=== PATIENT | female | born 1970 | race Caucasian/White ===

== ENCOUNTER 2017-09-16 21:18 | Inpatient (IN) | payer MEDICARE, MEDICAID ==
[2017-09-16] MEDS ORDERED: Ondansetron HCl/PF 4 MG/2 ML Vial ONE (21:52)
[2017-09-16] MEDS ORDERED: Ondansetron ODT 4 MG TAB ONE (22:26)
[2017-09-16 22:41] LABS: BUN (Urea Nitrogen) 64 mg/dL (7.0-18.7); Calc. Creatinine Clearance 0 mL/min (70-130); Calcium 10.1 mg/dL (7.8-10.44); Estimated GFR-MDRD 11
[2017-09-16 22:50] LABS: Magnesium 2.4 mg/dL (1.6-2.6); Phosphorus 5.6 mg/dL (2.3-4.7)
[2017-09-16 23:01] LABS: Anion Gap 24 mmol/L (10-20)
[2017-09-16 23:05] LABS: Carbon Dioxide 45 mmol/L (22-29); Chloride 70 mmol/L (98-107)
[2017-09-16] MEDS ORDERED: Ondansetron HCl/PF 4 MG/2 ML Vial IVP PRN ×2 (23:11→23:18)
[2017-09-16] MEDS ORDERED: Ondansetron ODT 4 MG TAB SL PRN (23:11)
[2017-09-16] MEDS ORDERED: Eucerin (Mineral Oil/Petrolatum,White) 30 gm Jar TOP PRN (23:18)
[2017-09-16] MEDS ORDERED: Zolpidem Tartrate 5 MG TAB PO PRN (23:18)
[2017-09-16] MEDS ORDERED: Milk Of Magnesia 30 ML UDCUP PO PRN (23:18)
[2017-09-16] MEDS ORDERED: Loratadine 10 MG TAB PO PRN (23:18)
[2017-09-16] MEDS ORDERED: Diabetic Tussin 200 MG/10 ML UDCUP PO PRN (23:18)
[2017-09-16] MEDS ORDERED: Sodium Chloride 0.65% Nasal 44 ML BOT EA NARE PRN (23:18)
[2017-09-16] MEDS ORDERED: Ondansetron ODT 4 MG TAB PO PRN (23:18)
[2017-09-16] MEDS ORDERED: Senokot 8.6 MG TAB PO PRN (23:18)
[2017-09-16] MEDS ORDERED: Chloraseptic Spray 180 ml Bottle PO PRN (23:18)
[2017-09-16] MEDS ORDERED: Artificial Tears 18 DROP/0.9 ML EA EYE PRN (23:18)
[2017-09-16] MEDS ORDERED: hydrALAZINE 20 MG/ML VIAL SLOW IVP PRN (23:18)
[2017-09-16] MEDS ORDERED: Acetaminophen 325 MG TAB PO PRN (23:18)
[2017-09-16] MEDS ORDERED: Loperamide HCl 2 MG CAP PO PRN (23:18)
[2017-09-16] MEDS ORDERED: Potassium Chloride 20 MEQ TAB PO SCH (23:30)
--- NOTE | 2017-09-16 23:37 | PDOC.EVN ---
Event Note - Event Note Event Note: Patient seen and examined. dictation note to follow
[2017-09-17] MEDS ORDERED: Lorazepam 1 MG TAB PO PRN (00:11)
[2017-09-17] MEDS: NS 0.9% w/ 20 MEQ KCL 1,000 ML/1,000 ML BAG IV SCH ×3 (01:34→21:31)
--- NOTE | 2017-09-17 01:41 | HP ---
DATE OF ADMISSION: 09/16/2017 PRIMARY CARE PHYSICIAN: Dr. Baig in [place], [place]. REASON FOR ADMISSION: Transfer from [facility] for acute kidney failure. HISTORY OF PRESENT ILLNESS: A 46-year-old female who has history of alcoholic cirrhosis as well as a history of hepatitis B, who initially went to [facility] because patient reported to reymundo corona that she passed out at home and subsequently she was taken to the nearest emergency room where she had routine blood test done and patient was found with acute kidney failure. As per our hospital rec ord, her most recent creatinine was 1.84 on 08/12/2017. This patient has history of end-stage renal disease and she was on peritoneal dialysis, subsequently peritoneal dialysis catheter was removed and she was doing well without any dialysis and she was following Dr. Gomez. The patient reports that for the last week or two, she was having diarrhea. She is not able to quantify diarrhea, but she wa s having on and off loose stool. She denies any nausea, vomiting. She denies any ibuprofen or any o ther NSAID abuse. At [facility], the patient was given IV fluid, Zofran and potassium supplement with IV fluid and subsequently, she was transferred to our hospital. At [facility], the patien t was hypotensive, but with IV fluid, her blood pressure improved. When we repeated blood tests in our hospital, she was having hypokalemia and creatinine was 4.42; at [facility], her creatinine was 5.03. We are admitting this patient for acute kidney fa ilure. ALLERGIES: CEPHALOSPORINS, CIPROFLOXACIN. CURRENT HOME MEDICATIONS: At this point, patient does not have any medication with her at this point , but based on our hospital record, the patient is on following medications: [place] 5 one or two tabl et q. 6 hourly p.r.n., lorazepam 0.5 mg p.o. b.i.d. p.r.n., Antivert 25 mg p.o. daily p.r.n., midodri ne 5 mg t.i.d., omeprazole 40 mg p.o. daily. REVIEW OF SYSTEMS: The following complete review of systems was negative, unless otherwise mentioned in the HPI or below: Constitutional: Weight loss or gain, ability to conduct usual activities. Skin: Rash, itching. Eyes: Double vision, pain. ENT/Mouth: Nose bleeding, neck stiffness, pain, tenderness. Cardiovascular: Palpitations, dyspnea on exertion, orthopnea. Respiratory: Shortness of breath, wheezing, cough, hemoptysis, fever or night sweats. Gastrointestinal: Poor appetite, abdominal pain, heartburn, nausea, vomiting, constipation, or diarr hea. Genitourinary: Urgency, frequency, dysuria, nocturia. Musculoskeletal: Pain, swelling. Neurologic/Psychiatric: Anxiety, depression. Allergy/Immunologic: Skin rash, bleeding tendency. Otherwise negative except as stated per HPI. Please see my HPI for pertinent positive and negative. All other review of systems reviewed and nega tive except as mentioned in the HPI. PAST MEDICAL HISTORY: Alcoholic cirrhosis of liver; history of hepatitis B; history of end-stage lorenzo al disease, required peritoneal dialysis for 2 years in the past; history of peritonitis secondary to peritoneal dialysis catheter; chronic kidney disease, stage 3; hemochromatosis carrier; chronic macr ocytic anemia; alcohol abuse; tobacco abuse; protein calorie malnutrition, moderate; vitamin D defici ency. PAST SURGICAL HISTORY: Cholecystectomy, peritoneal dialysis catheter placement and subsequently hiwot shubham, incisional hernia repair, appendicectomy, femur surgery, right hand surgery. PAST PSYCHIATRIC HISTORY: Anxiety and depression, bipolar disorder. SOCIAL HISTORY: The patient is smoking about 1 pack per day for the last 26 years. She also drinks half bottle of alcohol on a daily basis. She is . She has 2 children. She is not working, lives alone. She has a remote history of drug abuse. She abused cocaine. FAMILY HISTORY: No strong family history of premature coronary artery disease, stroke or cancer. EMERGENCY ROOM COURSE: The patient has been given IV fluid with potassium with Zofran at other [facility] room. The patient has received another Zofran and IV fluid in our emergency room. PHYSICAL EXAMINATION: VITAL SIGNS: Currently, blood pressure 141/93, pulse 72, respiratory rate 18, temperature 97.8, satu ration 100% on room air, and weight 38.5 kilograms. GENERAL: The patient is currently alert, awake, appears older than her stated age. HEAD: Normocephalic, atraumatic. EYES: Pupils round, reactive to light. Extraocular muscles intact. ENT: Oropharynx within normal limit. Pale mucous membranes. No pharyngeal erythema, no exudate. NECK: Supple, no JVD, no thyromegaly, no meningeal signs of irritation. LUNGS: Clear to auscultation without any rhonchi or rales. CARDIAC: S1, S2 regular. No murmur, no gallop, no rub. ABDOMEN: Soft, bowel sounds present. Surgical scar from previous peritoneal dialysis catheter. No ascites, no peritoneal sign, no guarding, no rigidity, no rebound, no suprapubic tenderness. BACK: Unremarkable, no CVA tenderness. EXTREMITIES: Upper extremities: Passive movement of all joints are normal. Lower extremities: No edema. Good peripheral pulsation. SKIN: Dry and pale. NEUROLOGIC: The patient has poor memory. Cranial nerves II-XII intact. Motor and sensation within normal limits. No focal neurological deficit noted. PSYCHIATRIC: Normal affect. SIGNIFICANT LABORATORY DATA: CBC: WBC 7.4, hemoglobin 11.7, MCV 110.2, platelets 346. BMP: Sodium 130, potassium 2.2, chloride 54, BUN 68, creatinine 5.03, calcium 10.5, glucose 82, albumin 3.3, AST 44, ALT 22, alkaline phosphatase 235, protein 7.7, osmolality 279, bilirubin 0.76, anion gap 32.2. Urinalysis: Leukocyte esterase 2+. ASSESSMENT AND PLAN/IMPRESSION: 1. Acute on chronic kidney failure. The patient has baseline chronic kidney disease, stage 3. This patient has previous history of end-stage renal disease on peritoneal dialysis for few years and the n peritoneal dialysis catheter was discontinued. At one point, her creatinine was normal 1.04. Most recent creatinine was 1.84 and now 5.03. Most likely prerenal etiology, the patient will be given I V fluid. We will consult Nephrology. We will check urine sodium, creatinine, protein, and urinalysi s. We will avoid nephrotoxins and we will obtain renal ultrasound. We will repeat kidney function t omorrow. 2. Hypokalemia. We will replace potassium 40 mEq p.o. one time dose and we will also continue potas sium with IV fluid. 3. Hyponatremia likely due to dehydration. We will continue with IV fluid and we will repeat BMP ag ain tomorrow. This could be from beer potomania given her significant alcohol abuse. 4. Microcytic anemia, likely related with her alcohol abuse. We will continue with multivitamin IV daily and subsequently, we will consider adding folic acid, thiamine, vitamin B12 therapy. 5. Alcohol abuse, patient is given counseling to avoid alcohol abuse. We will provide Ativan 1 mg p .o. q. 4 hourly p.r.n. basis for withdrawal. We will watch for alcohol withdrawal. The patient is a lready on multivitamin therapy. 6. Tobacco abuse disorder. We will provide nicotine patch 14 mcg every day basis. Smoking cessatio n counseling given. 7. Protein calorie malnutrition, moderate. The patient is given dietary instruction. We will provi de Ensure t.i.d. while in hospital. 8. Vitamin D deficiency. We will continue vitamin D3 of 1000 units p.o. daily. 9. Hyperphosphatemia, likely related with renal failure. We will monitor renal function. We will a dd PhosLo 667 mg 2 tablets three times daily. 10. Anion gap acidosis, likely related with alcohol use and renal failure. We will also obtain ABG for better defining acid base disorder. 11. Deep venous thrombosis prophylaxis, heparin 5000 units subcu twice daily. 12. Gastrointestinal prophylaxis, Protonix 40 mg p.o. daily. CODE STATUS: The patient is FULL CODE. The patient does not have any surrogate decision maker. Disposition plan based on clinical course. We are expecting patient's stay in the hospital more than 2 midnights. Plan of care discussed with the patient in detail.
[2017-09-17 02:01] VITALS: BMI 14.6
[2017-09-17 02:32] LABS: Bacteria/HPF None Seen HPF (None Seen); Bilirubin Negative (Negative); Blood, Urine Negative (Negative); Glucose, Urine (Dipstick) Negative (Negative); Hyaline Casts/LPF 0-3 HYALINE CAST LPF (0-3 Hyaline); Ketone, Urine Negative (Negative); Nitrite Negative (Negative); Protein, Urine (Dipstick) Negative (Neg-Trace); RBC/HPF None Seen HPF (0-3); Squamous Epithelial 0-3 HPF (0-3); Urobilinogen 0.2 mg/dL (0.2-1.0); WBC/HPF 0-3 HPF (0-3)
[2017-09-17 05:42] LABS: PTT 28.8 SEC (22.9-36.1); Prothrombin Time 13.9 SEC (12.0-14.7)
[2017-09-17 05:43] LABS: ALT (SGPT) 16 U/L (8-55); AST (SGOT) 36 U/L (5-34); Alkaline Phosphatase 211 U/L (40-150); BUN (Urea Nitrogen) 64 mg/dL (7.0-18.7); Bilirubin, Total 0.6 mg/dL (0.2-1.2); Calc. Creatinine Clearance 10 mL/min (70-130); Calcium 9.6 mg/dL (7.8-10.44); Estimated GFR-MDRD 11; Globulin 3.5 g/dL (2.4-3.5); Protein, Total 6.1 g/dL (6.0-8.3)
[2017-09-17 05:52] LABS: Anion Gap 19 mmol/L (10-20); Chloride 75 mmol/L (98-107)
[2017-09-17 05:56] LABS: Carbon Dioxide 47 mmol/L (22-29)
[2017-09-17] MEDS ORDERED: Potassium Chloride 20 MEQ TAB PO SCH (06:00)
[2017-09-17] MEDS: Nicotine 14 MG PATCH TD SCH (06:20)
[2017-09-17 06:23] LABS: #Basophils 0.1 thou/uL (0.0-0.2); #Eosinphils 0.1 thou/uL (0.0-0.7); #Lymphocytes 1.6 thou/uL (1.20-3.40); #Monocytes 0.7 thou/uL (0.11-0.59); #Neutrophils 4.9 thou/uL (1.40-6.50); %Basophils 0.8 % (0.0-1.0); %Eosinophils 1.3 % (0.0-10.0); %Lymphocytes 21.4 % (21.0-51.0); %Monocytes 9.9 % (0.0-10.0); Hematocrit 28.7 % (36.0-47.0); Macrocytosis SLIGHT = 6-15 cells (100X) (0-5/hpf); Polychromasia SLIGHT = 2-3 cells (100X) (0-2/hpf); Red Blood Cell (RBC) Count 2.47 mill/uL (4.20-5.40); White Blood Cell (WBC) Count 7.4 thou/uL (4.8-10.8)
[2017-09-17 06:46] LABS: Sodium 134 mmol/L (135-148)
[2017-09-17 06:48] LABS: Mode ROOM AIR
--- NOTE | 2017-09-17 07:44 | ULT ---
RENAL ULTRASOUND: HISTORY: Acute renal insufficiency. FINDINGS: Real-time imaging of the right and left kidneys was performed. The right mp9wdyy measures 7.8 and th e left kidney 8.4 cm in size. There are no signs of obstruction. A tiny 4 mm cyst is noted on the r ight and an 8 mm cyst on the left. Bladder region appears unremarkable. IMPRESSION: Tiny bilateral renal cysts. POS: CY
--- NOTE | 2017-09-17 08:19 | PDOC.PN ---
- Subjective Encounter Start Date: 09/17/17 Encounter Start Time: 08:17 Subjective: alert, no complaints - Objective Resuscitation Status: Resuscitation Status FULL:Full Resuscitation MAR Reviewed: Yes Vital Signs & Weight: Vital Signs (12 hours) Temp Pulse Resp BP Pulse Ox 09/17/17 04:00 97.0 F L 72 20 104/70 98 09/16/17 23:50 97.9 F 73 18 100 09/16/17 23:30 97.9 F 73 18 110/78 97 Weight Weight 82 lb 11.2 oz I&O: 09/16/17 09/17/17 09/18/17 06:59 06:59 06:59 Output Total 350 Balance -350 Result Diagrams: 09/17/17 05:04 09/17/17 05:04 Phys Exam - Physical Examination Constitutional: NAD Neck: no JVD Respiratory: clear to auscultation bilateral Cardiovascular: RRR, no significant murmur Gastrointestinal: soft, non-tender, positive bowel sounds Musculoskeletal: pulses present, edema present Dx/Plan (1) KAMALJIT (acute kidney injury) Code(s): N17.9 - ACUTE KIDNEY FAILURE, UNSPECIFIED Status: Acute (2) CKD (chronic kidney disease) Code(s): N18.9 - CHRONIC KIDNEY DISEASE, UNSPECIFIED Status: Acute Qualifiers: Chronic kidney disease stage: stage 3 (moderate) Qualified Code(s): N18.3 - Chronic kidney disease, stage 3 (moderate) (3) Cirrhosis of liver Code(s): K74.60 - UNSPECIFIED CIRRHOSIS OF LIVER Status: Acute Qualifiers: Hepatic cirrhosis type: alcoholic cirrhosis (4) Alcohol abuse Code(s): F10.10 - ALCOHOL ABUSE, UNCOMPLICATED Status: Chronic (5) Tobacco abuse Code(s): Z72.0 - TOBACCO USE Status: Chronic - Plan stable at present, await renal input -: toxicology PEREZ * .
[2017-09-17] MEDS: Cyanocobalamin (Vitamin B-12) 1,000 MCG TAB PO SCH (09:26)
[2017-09-17] MEDS: Calcium Acetate 667 MG CAP PO SCH ×3 (09:26→17:27)
[2017-09-17] MEDS: Folic Acid 1 MG TAB PO SCH (09:26)
[2017-09-17] MEDS: Heparin 5,000 UNITS/ML VIAL SC SCH ×2 (09:28→21:30)
[2017-09-17] MEDS: Mag-Al 1200 mg/1200 mg/30 ML UDCUP PO PRN (12:08)
[2017-09-17 12:44] LABS: Amphetamine Not Detected (NotDetected); Methadone Not Detected (NotDetected); Methamphetamine Not Detected (NotDetected)
[2017-09-17] MEDS: HYDROcodone/Acetaminophen 5/325 mg Tablet PO PRN (13:32)
--- NOTE | 2017-09-17 23:36 | CON ---
DATE OF CONSULTATION: 09/17/2017 NEPHROLOGY CONSULTATION CONSULTING PHYSICIAN: Dr. Vang. REASON FOR CONSULTATION: Acute kidney injury. REASON FOR ADMISSION: Not feeling well. HISTORY OF PRESENT ILLNESS: This is a 46-year-old female with a history of alcoholic cirrhosis, hepa titis, history of peritonitis, hemochromatosis and alcohol abuse, came to the hospital with weakness and was found to have acute kidney injury. She was complaining of diarrhea for the last few weeks. No fever or chills, no cough, no chest pain or palpitation, no shortness of breath reported. PAST MEDICAL HISTORY: Positive for alcoholic cirrhosis, alcohol abuse, chronic anemia, history of di alysis for few years. PAST SURGICAL HISTORY: Cholecystectomy, peritoneal dialysis catheter placement, incisional hernia re pair, appendectomy, femur surgery, right hand surgery. HOME MEDICATIONS: [place], lorazepam, Antivert, midodrine, omeprazole. ALLERGIES: CEPHALOSPORINS, CIPROFLOXACIN. SOCIAL HISTORY: No smoking, alcohol or illicit drug abuse. FAMILY HISTORY: No history of any kidney disease . REVIEW OF SYSTEMS: The following complete review of systems was negative, unless otherwise mentioned in the HPI or below: Constitutional: Weight loss or gain, ability to conduct usual activities. Skin: Rash, itching. Eyes: Double vision, pain. ENT/Mouth: Nose bleeding, neck stiffness, pain, tenderness. Cardiovascular: Palpitations, dyspnea on exertion, orthopnea. Respiratory: Shortness of breath, wheezing, cough, hemoptysis, fever or night sweats. Gastrointestinal: Poor appetite, abdominal pain, heartburn, nausea, vomiting, constipation, or diarr hea. Genitourinary: Urgency, frequency, dysuria, nocturia. Musculoskeletal: Pain, swelling. Neurologic/Psychiatric: Anxiety, depression. Allergy/Immunologic: Skin rash, bleeding tendency. PHYSICAL EXAMINATION: GENERAL: This is a thin-built female in no apparent distress. VITAL SIGNS: Temperature 97.1, pulse 68, respiratory rate 18, blood pressure . HEENT: Atraumatic, normocephalic. Oral mucosa is dry. NECK: Supple, no masses. CARDIOVASCULAR: S1, S2. Rate and rhythm regular. RESPIRATORY: Clear. ABDOMEN: Soft. MUSCULOSKELETAL: 1+ edema. DERMATOLOGIC: No skin rash. NEUROLOGIC: Alert and awake. PSYCHIATRIC: Mood and affect normal. LABORATORY DATA: Hemoglobin is 9.7, potassium is 3.2, bicarbonate is 47, BUN is 64, creatinine was 4 .1. ASSESSMENT AND PLAN: 1. Acute kidney injury secondary to volume depletion. Continue hydration. 2. Metabolic alkalosis, compensated. 3. Hypokalemia secondary to alkalosis and diarrhea. 4. Hypochloremia. 5. Anemia, mild. Plan is to continue IV fluids. Avoid nephrotoxins. No acute indication for dialysis. Thank you for the consultation.
[2017-09-18] MEDS: Nicotine 14 MG PATCH TD SCH (06:44)
[2017-09-18] MEDS: NS 0.9% w/ 20 MEQ KCL 1,000 ML/1,000 ML BAG IV SCH (07:00)
--- NOTE | 2017-09-18 07:38 | PDOC.PN ---
- Subjective Encounter Start Date: 09/18/17 Encounter Start Time: 07:34 Ms. Leyva was seen today in follow-up of acute renal failure. She says she is feeling weak, but better. - Objective Resuscitation Status: Resuscitation Status FULL:Full Resuscitation MAR Reviewed: Yes Vital Signs & Weight: Vital Signs (12 hours) Temp Pulse Resp BP BP Pulse Ox 09/18/17 04:00 98.3 F 65 18 123/80 94 L 09/18/17 00:00 98.5 F 77 18 99/63 93 L 09/17/17 20:00 98.4 F 60 18 115/73 93 L Weight Admit Weight 82 lb 11.2 oz Weight 82 lb 11.2 oz I&O: 09/17/17 09/18/17 09/19/17 06:59 06:59 06:59 Intake Total 3460 2060 Output Total 350 Balance -350 3460 0 Result Diagrams: 09/17/17 05:04 09/17/17 05:04 Phys Exam - Physical Examination HEENT: PERRLA Respiratory: no wheezing, no rales, no rhonchi, clear to auscultation bilateral Cardiovascular: RRR, no significant murmur Gastrointestinal: soft, non-tender, positive bowel sounds Musculoskeletal: no edema Dx/Plan (1) Acute on chronic kidney failure Code(s): N17.9 - ACUTE KIDNEY FAILURE, UNSPECIFIED; N18.9 - CHRONIC KIDNEY DISEASE, UNSPECIFIED Status: Acute (2) Metabolic alkalosis Code(s): E87.3 - ALKALOSIS Status: Acute (3) Cirrhosis of liver Code(s): K74.60 - UNSPECIFIED CIRRHOSIS OF LIVER Status: Acute Qualifiers: Hepatic cirrhosis type: alcoholic cirrhosis (4) Alcohol abuse Code(s): F10.10 - ALCOHOL ABUSE, UNCOMPLICATED Status: Chronic - Plan * Acute on chronic kidney disease- due to volume depletion- Continue IV hydration * Hypokalemia- from metabolic alkalosis- continue hydration and replace potassium. * Cirrhosis- compensated * Alcohol abuse- will continue brief counseling throughout hospital stay * Renal ultrasound- no obstruction * Continue to monitor renal function- Nephrology following
[2017-09-18] MEDS ORDERED: Potassium Chloride 20 MEQ TAB PO SCH (08:00)
[2017-09-18] MEDS: Folic Acid 1 MG TAB PO SCH (08:00)
[2017-09-18] MEDS: Cyanocobalamin (Vitamin B-12) 1,000 MCG TAB PO SCH (08:00)
[2017-09-18] MEDS: Heparin 5,000 UNITS/ML VIAL SC SCH ×2 (08:01→20:22)
[2017-09-18] MEDS: Calcium Acetate 667 MG CAP PO SCH ×3 (08:01→17:34)
[2017-09-18] MEDS: HYDROcodone/Acetaminophen 5/325 mg Tablet PO PRN (10:39)
[2017-09-18] MEDS: Mag-Al 1200 mg/1200 mg/30 ML UDCUP PO PRN (11:29)
[2017-09-18 12:01] LABS: Anion Gap 14 mmol/L (10-20); BUN (Urea Nitrogen) 44 mg/dL (7.0-18.7); Calc. Creatinine Clearance 16 mL/min (70-130); Calcium 9.6 mg/dL (7.8-10.44); Carbon Dioxide 32 mmol/L (22-29); Chloride 97 mmol/L (98-107); Estimated GFR-MDRD 20
--- NOTE | 2017-09-18 12:31 | PRG ---
Patient Name: PHILIP JEFFERSON Date of service: 09/18/2017 Subjective: Patient was seen and examined at bedside and overnight events noted. Patient denies any shortness of breath or chest pain or palpitation. No history of nausea or vomiting or diarrhea or fever or chills or cramps. Objective: General: This is a thin-built female in no apparent distress. Vital signs: Temperature 97, pulse 61, respiratory rate 18, blood pressure 128/ 84. HEENT: Atraumatic, normocephalic. Oral mucosa is moist. Neck: Supple. Cardiovascular: S1 S2 heard. Rate and rhythm regular. Respiratory: Clear to auscultation. Gastrointestinal: Abdomen is soft. Musculoskeletal: No tenderness. No edema. Dermatologic: No skin rash. Neurologic: Alert and awake and oriented X3. No focal neurologic deficits. Moving all the extremities. Psychiatric: Mood and affect normal. LABORATORY DATA: Potassium is 5.5, BUN 44, creatinine is 2.5. ASSESSMENT AND PLAN: 1. Acute kidney injury, getting better with IV hydration. 2. Hyperkalemia. We will stop potassium supplements. 3. Metabolic alkalosis, much better with IV hydration. 4. Hyperkalemia. 5. Anemia. Continue on hydration. Bicarbonate creatinine is getting better. Stop potassium supplements. MTDD
[2017-09-18] MEDS: Sodium Chloride 0.9% 1,000 ML IV SCH ×2 (13:29→22:37)
[2017-09-19] MEDS: Nicotine 14 MG PATCH TD SCH (03:18)
[2017-09-19 04:50] LABS: Anion Gap 10 mmol/L (10-20); BUN (Urea Nitrogen) 35 mg/dL (7.0-18.7); Calc. Creatinine Clearance 19 mL/min (70-130); Calcium 9.1 mg/dL (7.8-10.44); Carbon Dioxide 31 mmol/L (22-29); Chloride 103 mmol/L (98-107); Estimated GFR-MDRD 25
[2017-09-19] MEDS: Sodium Chloride 0.9% 1,000 ML IV SCH ×2 (08:18→18:30)
[2017-09-19] MEDS: Calcium Acetate 667 MG CAP PO SCH ×3 (08:20→16:25)
[2017-09-19] MEDS: Cyanocobalamin (Vitamin B-12) 1,000 MCG TAB PO SCH (09:36)
[2017-09-19] MEDS: Folic Acid 1 MG TAB PO SCH (09:36)
[2017-09-19] MEDS: Heparin 5,000 UNITS/ML VIAL SC SCH ×2 (09:37→19:50)
--- NOTE | 2017-09-19 09:48 | PDOC.PN ---
- Subjective Encounter Start Date: 09/19/17 Encounter Start Time: 09:45 is being seen with regards to acute renal failure and dehydration. She says she feels much better today, and has no complaints. - Objective Resuscitation Status: Resuscitation Status FULL:Full Resuscitation MAR Reviewed: Yes Vital Signs & Weight: Vital Signs (12 hours) Temp Pulse Resp BP Pulse Ox 09/19/17 08:00 98.2 F 55 L 18 143/86 H 100 Weight Admit Weight 82 lb 11.2 oz Weight 82 lb 11.2 oz I&O: 09/18/17 09/19/17 09/20/17 06:59 06:59 06:59 Intake Total 3460 5990 Balance 3460 5990 Result Diagrams: 09/17/17 05:04 09/19/17 04:06 Phys Exam - Physical Examination HEENT: PERRLA Respiratory: no wheezing, no rales, no rhonchi, clear to auscultation bilateral Cardiovascular: RRR, no significant murmur Gastrointestinal: soft, non-tender, positive bowel sounds Musculoskeletal: no edema Dx/Plan (1) Acute on chronic kidney failure Code(s): N17.9 - ACUTE KIDNEY FAILURE, UNSPECIFIED; N18.9 - CHRONIC KIDNEY DISEASE, UNSPECIFIED Status: Acute (2) Metabolic alkalosis Code(s): E87.3 - ALKALOSIS Status: Acute (3) Cirrhosis of liver Code(s): K74.60 - UNSPECIFIED CIRRHOSIS OF LIVER Status: Acute Qualifiers: Hepatic cirrhosis type: alcoholic cirrhosis (4) Alcohol abuse Code(s): F10.10 - ALCOHOL ABUSE, UNCOMPLICATED Status: Chronic - Plan * Acute renal failure- improving * Metabolic alkalosis- improving with hydration * Hyperkalemia- this has been corrected, after potassium supplementation was stopped * If renal function continues to improve, then likely home soon.
--- NOTE | 2017-09-19 13:21 | PRG ---
DATE OF SERVICE: 09/19/2017 SUBJECTIVE: Patient was seen and examined at bedside and overnight events noted. Patient denies any shortness of breath or chest pain or palpitation. No history of nausea or vomiting or diarrhea or fever or chills or cramps. OBJECTIVE: GENERAL: This is a thin built female in no apparent distress. VITAL SIGNS: Temperature 98.2, pulse 55, respirations 18, blood pressure 143/86. HEENT: Atraumatic, normocephalic. Oral mucosa is moist. NECK: Supple. CARDIOVASCULAR: S1, S2 heard. Rate and rhythm regular. RESPIRATORY: Clear to auscultation. GASTROINTESTINAL: Abdomen is soft. MUSCULOSKELETAL: No tenderness, no edema. DERMATOLOGIC: No skin rash. NEUROLOGIC: Alert and awake and oriented x3. No focal neurologic deficits. Moving all the extremit ies. PSYCHIATRIC: Mood and affect normal LABORATORY DATA: Potassium is 4.3, BUN is 35, and creatinine is 2.1. ASSESSMENT AND PLAN: 1. Acute kidney injury on chronic kidney disease. Renal function is slowly getting better. Continu e hydration for 1 more day. 2. Hyperkalemia, better after stopping potassium supplements. 3. Metabolic alkalosis, better. 4. Anemia. 5. Edema, controlled. Plan is to continue on intravenous fluids for 1 more day.
[2017-09-19] MEDS: HYDROcodone/Acetaminophen 5/325 mg Tablet PO PRN (16:20)
[2017-09-20] MEDS: HYDROcodone/Acetaminophen 5/325 mg Tablet PO PRN ×2 (00:14→10:04)
[2017-09-20 04:45] LABS: Anion Gap 11 mmol/L (10-20); BUN (Urea Nitrogen) 24 mg/dL (7.0-18.7); Calc. Creatinine Clearance 25 mL/min (70-130); Calcium 8.8 mg/dL (7.8-10.44); Carbon Dioxide 22 mmol/L (22-29); Chloride 110 mmol/L (98-107); Estimated GFR-MDRD 33
[2017-09-20] MEDS: Sodium Chloride 0.9% 1,000 ML IV SCH (06:13)
[2017-09-20] MEDS: Nicotine 14 MG PATCH TD SCH (06:13)
[2017-09-20] MEDS: Cyanocobalamin (Vitamin B-12) 1,000 MCG TAB PO SCH (08:06)
[2017-09-20] MEDS: Calcium Acetate 667 MG CAP PO SCH ×2 (08:06→11:32)
[2017-09-20] MEDS: Folic Acid 1 MG TAB PO SCH (08:06)
[2017-09-20] MEDS: Heparin 5,000 UNITS/ML VIAL SC SCH (08:07)
--- NOTE | 2017-09-20 09:08 | PRG ---
DATE OF SERVICE: 09/20/2017 SUBJECTIVE: This is a 46-year-old female being seen for acute kidney injury. The patient denies any nausea, vomiting or chest pain. PHYSICAL EXAMINATION: GENERAL: Patient is awake, alert. VITAL SIGNS: Afebrile, pulse 74, breathing at 16, blood pressure 116/70. GENERAL APPEARANCE AND MENTAL STATUS: Fair. HEAD/NECK: Normocephalic. Atraumatic. EYES: EOMI. No deformity. EARS: Clear. No ulcers. NOSE: Intact. No lesions. MOUTH: Clear. No discharge. THROAT: Clear. No exudate. LUNGS: Clear. No crackles. CARDIAC: S1, S2. No rub. ABDOMEN: Benign. BS+. GENITALIA/RECTUM: Hoffman absent. BACK/EXTREMITIES: Edema 0+ Ulcer- NEUROLOGICAL: Alert and motor intact. SKIN: Rash- Bruise- LYMPHATICS: Edema- Ulcer- LABORATORY DATA: Show hemoglobin 9.7, creatinine 1.6. ASSESSMENT AND PLAN: 1. Acute kidney injury, improved. 2. Hypotension, stable. 3. Anemia, stable. 4. Medications based on glomerular filtration rate are appropriate. No indication for dialysis. MTDD
--- NOTE | 2017-09-20 09:39 | PDOC.PN ---
- Subjective Encounter Start Date: 09/20/17 Encounter Start Time: 09:37 Ms. Leyva was seen today in follow-up of acute renal failure. She is feeling much better today, and wants to go home. - Objective Resuscitation Status: Resuscitation Status FULL:Full Resuscitation MAR Reviewed: Yes Vital Signs & Weight: Vital Signs (12 hours) Temp Pulse Resp BP Pulse Ox 09/20/17 08:51 99.3 F 52 L 18 135/76 100 09/20/17 08:00 98.5 F 74 18 09/20/17 04:00 98.5 F 74 18 116/70 98 Weight Admit Weight 82 lb 11.2 oz Weight 82 lb 11.2 oz I&O: 09/19/17 09/20/17 09/21/17 06:59 06:59 06:59 Intake Total 5990 4760 Balance 5990 4760 Result Diagrams: 09/17/17 05:04 09/20/17 03:41 Phys Exam - Physical Examination HEENT: PERRLA Respiratory: no wheezing, no rales, no rhonchi Cardiovascular: RRR, no significant murmur, no rub Gastrointestinal: soft, non-tender, positive bowel sounds Musculoskeletal: no edema Dx/Plan (1) Acute on chronic kidney failure Code(s): N17.9 - ACUTE KIDNEY FAILURE, UNSPECIFIED; N18.9 - CHRONIC KIDNEY DISEASE, UNSPECIFIED Status: Acute (2) Metabolic alkalosis Code(s): E87.3 - ALKALOSIS Status: Acute (3) Cirrhosis of liver Code(s): K74.60 - UNSPECIFIED CIRRHOSIS OF LIVER Status: Acute Qualifiers: Hepatic cirrhosis type: alcoholic cirrhosis (4) Alcohol abuse Code(s): F10.10 - ALCOHOL ABUSE, UNCOMPLICATED Status: Chronic - Plan * Acute renal failure- resolved * Metabolic Alkalosis- resolved * She is stable for discharge home.
--- NOTE | 2017-09-20 11:17 | DIS ---
PRIMARY CARE PHYSICIAN: Dr. Baig in [place]. DATE OF ADMISSION: 09/16/2017 DATE OF DISCHARGE: 09/20/2017 DISCHARGE DISPOSITION: Home. PRIMARY DISCHARGE DIAGNOSES: 1. Gastroenteritis. 2. Acute renal failure secondary to volume depletion. 3. Hypokalemia secondary to metabolic alkalosis. 4. Hyponatremia secondary to dehydration. 5. Contraction alkalosis. 6. Alcohol dependence. DISCHARGE MEDICATIONS: Include omeprazole 40 mg daily, midodrine 5 mg t.i.d., meclizine 25 mg as nee ded, [place] 5/325 one to two tablets q.6 hours as needed. PROCEDURES DONE DURING ADMISSION: The patient had a renal ultrasound showing tiny bilateral renal cy sts CODE STATUS: FULL CODE. ALLERGIES: CEPHALOSPORINS and CIPROFLOXACIN. HOSPITAL COURSE: Ms. Leyva is a pleasant 46-year-old female who was admitted to the hospital with acu te renal failure, this was likely as a result of diarrhea and volume depletion. She responded to IV hydration well. Renal ultrasound did not demonstrate any obstruction. She also had a contraction al kalosis and hypokalemia secondary to that this was corrected. At the time of discharge, her creatini ne was 1.6, which had come down from 4.17. She was clinically much improved and able to be discharge d home with close outpatient followup.
[2017-09-20 11:27] VITALS: BP 144/85; TEMP 98.4
== END 2017-09-20 12:35 | disposition home or self-care (01) | DRG 683 ==
LOC: ERS 21:18 → 2NO 22:00 → T4-A 09-17 09:52
PROVIDERS: ADMIT Internal Medicine; ATTEND Internal Medicine
DX: N17.9 Acute kidney failure, unspecified (principal); E87.1 Hypo-osmolality and hyponatremia; E87.3 Alkalosis; E44.0 Moderate protein-calorie malnutrition; E87.8 Other disorders of electrolyte and fluid balance, not elsewhere classified; Z68.1 Body mass index [BMI] 19.9 or less, adult; F10.20 Alcohol dependence, uncomplicated; N28.1 Cyst of kidney, acquired; K70.30 Alcoholic cirrhosis of liver without ascites; K52.9 Noninfective gastroenteritis and colitis, unspecified; D53.9 Nutritional anemia, unspecified; E87.6 Hypokalemia; E86.0 Dehydration; N18.3 Chronic kidney disease, stage 3 (moderate); F17.210 Nicotine dependence, cigarettes, uncomplicated; E55.9 Vitamin D deficiency, unspecified; Z14.8 Genetic carrier of other disease; F41.9 Anxiety disorder, unspecified; F31.9 Bipolar disorder, unspecified; E87.5 Hyperkalemia
CPT/HCPCS: 36415; 76770; 80048; 80053; 80306; 80307; 81001; 82570; 82805; 83735; 83970; 84100; 84156; 84300; 85025; 85610; 85730; 87015; 87045; 87046; 87077; 87086; 87186; 87324; 87328; 87329; 87449; 87899; 94760; 96361; 96374; 99406; J1644; J2405; Q0162